=== PATIENT | female | born 1955 | race American Indian/Alaskan Native ===

== ENCOUNTER 2019-04-01 09:33 | Outpatient (CLI) | payer OTHER ==
--- NOTE | 2019-04-01 12:02 | Magnetic Resonance Report ---
MRI LUMBAR SPINE WITHOUT CONTRAST INDICATION / CLINICAL INFORMATION: M54.5 LOW BACK PAIN. TECHNIQUE: Multisequence, multiplanar images of the lumbar spine were obtained. COMPARISON: None available. FINDINGS: ALIGNMENT: There is mild left convex scoliosis with the apex at the L4-L5 level. Sagittal alignment i s largely normal. VERTEBRAE:Normal marrow signal and vertebral body height for age. VISUALIZED SPINAL CORD: No significant abnormality. HYAWY-EA-GEMMS ANALYSIS: L1-2: No significant abnormality. L2-3: No significant abnormality. L3-4: There is moderate bilateral facet DJD with a right sided facet joint effusion. The facet hypert rophy results in mild bilateral neural foraminal narrowing. L4-5: There is disc height loss with reactive Modic type I and type II endplate change and endplate o steophyte formation. There is mild bilateral facet DJD. There is mild bilateral neural foraminal narr owing due to the facet hypertrophy. L5-S1: There is disc height loss with reactive Modic type II fatty change of the vertebral endplates and symmetric endplate osteophyte formation as well as mild bilateral facet DJD. There is mild bilate ral neural foraminal narrowing. PARASPINAL SOFT TISSUES: No significant abnormality. ADDITIONAL FINDINGS: None. IMPRESSION: 1. Degenerative findings from L3 through S1 as described with mild bilateral neural foraminal narrowi ng at these levels. No significant central canal stenosis. Signer Name: Kirt Mary MD Signed: 04/01/2019 11:57 AM Workstation Name: [id number]
== END 2019-04-01 09:34 | disposition home or self-care (01) ==
LOC: MRI 09:33
PROVIDERS: ATTEND Orthopaedic Surgery
DX: M47.816 Spondylosis without myelopathy or radiculopathy, lumbar region (principal); M48.061 Spinal stenosis, lumbar region without neurogenic claudication
CPT/HCPCS: 72148